=== PATIENT | male | born 1960 | race Caucasian/White ===

== ENCOUNTER 2024-12-09 09:27 | Emergency (ER) | payer MEDICARE, MEDICAID, SELFPAY ==
--- NOTE | 2024-12-09 09:31 | ED_ITS ---
HPI - General Adult General Chief complaint: Ear Problems Stated complaint: Swimmers ear? Time Seen by Provider: 12/09/24 09:31 Source: patient Mode of arrival: ambulatory Limitations: no limitations History of Present Illness ED Provider: Evelia Nielsen PA-C HPI narrative: Patient is a 64 year old assigned male at with a history of DM and recurrent ear infections presenting to the emergency department today with left sided ear swelling and pain. Patient states that over the last month he has had left sided ear swelling, redness, and pain. Patient states that it started on his right side but is now only his left. Patient states that throughout his life he has had issues with ear infections but hasn't had any issues in years. Patient denies any other complaints at this time. Related Data Previous Rx's ?Medication ?Instructions ?Recorded cephalexin 500 mg capsule 500 mg PO Q6H 7 days #28 cap s 12/09/24 doxycycline hyclate 100 mg tablet 100 mg PO BID 7 days #14 tabs 12/09/24 ofloxacin 0.3 % ear drops 10 drp otic (ears) DAILY 7 d ays 12/09/24 #10 mL Allergies Allergy/AdvReac Type Severity Reaction Status Date / Time Penicillins Allergy Unknown UNKNOWN Verified 12/09/24 09:39 Review of Systems 2 Constitutional: Constitutional: Reports as per HPI Eyes: Eyes: Reports as per HPI ENT: Reports as per HPI Cardiovascular: Cardiovascular: Reports as per HPI Respiratory: Respiratory: Reports as per HPI Gastrointestinal: Gastrointestinal: Reports as per HPI Genitourinary: Genitourinary: Reports as per HPI Musculoskeletal: Musculoskeletal: Reports as per HPI Integumentary/Breasts: Skin/Breast: Reports as per HPI Neurologic: Reports as per HPI Psychiatric: Psychiatric: Reports as per HPI Endocrine: Endocrine: Reports as per HPI Hematologic/Lymphatic: Hematologic/Lymphatic: Reports as per HPI Allergic/Immunologic: Allergic/Immunologic: Reports as per HPI PMF Past Medical History Attestation statement: The following information was validated with the patient. Source: old records reviewed and nursing notes reviewed Social History Social History Smoked in Last 30 Days: No Use of substances other than those prescribed or required for medical reasons: No Advance Directives: No Advance Directives Information Provided: Yes Do you have a plan to hurt others: No Plan Physical Exam ED Vital Signs: Vital Signs - 24 hr 12/09/24 09:38 12/09/24 09:45 12/09/24 10:06 Temperature 98.3 F 98.3 F 98.3 F Pulse Rate 89 89 89 Respiratory Rate 18 18 18 Blood Pressure 161/100 H 161/100 H 161/100 H Pulse Oximetry 98 98 98 Oxygen Delivery Method Room Air Room Air Room Air BMI result Body Mass Index 39.4 Const General: cooperative, no acute distress, alert and awake Nutritional Appearance: well nourished Orientation/consciousness: patient oriented x3 HENMT Other: Head: Yes normal to inspection and Yes atraumatic Ears: hearing grossly normal bilaterally and Abnormal EAC present otic discharge purulent bilateral General nose exam: Normal external nose present, no nasal discharge noted and no epistaxis Face and sinus: No abrasion and No laceration Mouth: Normal oral and palatal mucosa present, no drooling and no muffled voice Eyes General: appearance normal, both eyes and all related structures Periorbital: periorbital findings normal Eyelids: Yes eyelids normal Conjunctivae: conjunctivae normal Pupils: Equal, round and reactive pupils present EOM: EOMs intact bilaterally Neck Neck: Yes normal visual inspection and Yes full ROM Resp Effort & Inspection: normal respiratory effort and able to speak in complete sentences Neuro General: patient oriented x3, moves all extremities and CN's II-XI intact bilaterally Cranial nerves: Yes Equal, round and reactive pupils present Cognition (Neuro): normal cognition Extrem General: Yes normal to inspection, Yes full ROM and Yes capillary refill normal Psych Appearance: grossly normal Mental Status: mental status grossly normal Affect: normal affect Attitude: cooperative Thought process: Normal thought process present Thought content: Normal thought content present Insight: Good insight present (Psych) Medical Decision Making Medical Decision Making MDM Narrative: Patient is a 64 year old assigned male at with a history of DM and recurrent ear infections presenting to the emergency department today with left sided ear swelling and pain. Patient's physical exam was as noted in the physical exam portion of this note. Patient's left external ear has evidence of erythema / warmth / swelling concerning for cellulitis. Both of the patient's auditory canals had evidence of otitis externa with some pus like discharge mixed with ear wax. Patient's TMs normal bilaterally. Patient's clinical presentation is most consistent with left sided ear cellulitis and bilateral otitis externa for which I will treat with doxy + keflex + ofloxacin. I explained my physical exam findings to the patient. I answered all questions asked by the patient. I stressed the importance of the patient taking his medication as directed (either prescribed or as the over the counter packaging recommends). I stressed the importance of the patient following up with his primary care provider and ENT. I stressed the importance of the patient returning to the emergency department immediately if his symptoms were to worsen or if he were to develop any dizziness, shortness of breath, difficulty breathing, chest pain, blurry vision, loss of vision, nausea, vomiting, abdominal pain, fever, chills, back pain, or any other complaints. Patient verbalized agreement and understanding with this treatment plan and discharge. Differential Diagnosis Differential Diagnoses: The differential diagnosis associated with the presentation includes Ear pain Otitis externa Otitis media Cellulitis Admission/Observation Consideration of admission/observation: Escalation of care including admission/observation considered Patient would have been admitted to the hospital had his work up had any findings where hospital admission was appropriate and his clinical presentation warranted hospital admission. Prescription Management I considered prescription management with: Antibiotic (patient prescribed antibiotics as noted in the MDM Rationale portion of this note. ) Chronic Conditions Patient?s care impacted by: Diabetes Discharge Plan Discharge Clinical Impression: Otitis externa, Cellulitis Patient Disposition: Home, Self-Care Instructions: Cellulitis (ED), Swimmer's Ear (ED) Additional Instructions: Please keep your appointment with your PCP for next week. Take your antibiotics as prescribed and use the antibiotic drops as prescribed. Follow up with an ENT specialist. IF you are prescribed home medications and/or you are taking over the counter medications at home - it is very important you continue to do so as prescribed / directed unless told otherwise. Follow up with your primary care provider. Return to the emergency department immediately if your symptoms worsen or if you develop any numbness, tingling, dizziness, shortness of breath, difficulty breathing, chest pain, blurry vision, loss of vision, nausea, vomiting, abdominal pain, fever, chills, back pain, or any other complaints. Please see the information below about our Patient Portal. If you are not yet enrolled in the [facility] Patient Portal, you will receive an enrollment email invitation following your visit to any [facility] [place] setting. You may also self-enroll in the Patient Portal by visiting our website: [email or web address] The following information is required to access the Patient Portal: - Your [facility] Medical Record Number - Your personal home email address (must match what is in your electronic medical record, Registration staff can assist with this) - Name - Date of Capabilities of the Patient Portal: - Message some providers - View upcoming appointments - Access your health summary, medical history, and visit history - View current conditions and allergies - View procedure and lab results - View your medications, including guidelines, side effects, and precautions - Complete pre-appointment questionnaires requested by your provider - Ready summary reports of your office visits and procedures To access the Patient Portal Mobile Steve, follow these directions: - Search [employer] in the Steve Store or Copyright Agent Store - Download the Steve - Search for [facility] - Enter your login/password Prescriptions: New ofloxacin 0.3 % drops 10 drp otic (ears) DAILY 7 Days Qty: 10 0RF cephalexin 500 mg capsule 500 mg PO Q6H 7 Days Qty: 28 0RF doxycycline hyclate 100 mg tablet 100 mg PO BID 7 Days Qty: 14 0RF Referrals: [facility] [Provider Group, Ear, Nose, Throat] Referral Note: Call to establish and follow up with an ENT specialist. Radha Holley NP [Primary Care Provider, Internal Medicine] Interventions: ED Discharge Assessment Last Done: 12/09/24 10:06 Discharge Date/Time: 12/09/24 10:06 Print Language: Irish
[2024-12-09 09:38] VITALS: BP 161/100; PULSE 89; RESP 18; TEMP 36.8; O2SAT 98; BMI 39.4
--- NOTE | 2024-12-09 09:43 | PC.NURSE ---
64 M presents to ED with L ear pain, redness, swelling x 1 month, got worse last night. Hx swimmers ear, sts unknown to what caused this. Also c/o some intermittent hearing loss in left ear. RR even and unlabored, denies CP or SOB. RR even and unlabored, denies CP or SOB. Pt does have hypertension, took medications today. Pt sts they have white coat syndrome. A+OX4, a little anxious, cooperative. Pt takes the following meds daily: baby aspirin daily, Type 2 DM diet controlled, vitamin D3 capsule, Losartan 75mg daily, Atorvastatin 20mg daily. Pt ambulates without difficulty.
[2024-12-09 09:45] VITALS: BP 161/100; PULSE 89; RESP 18; TEMP 36.8; O2SAT 98
[2024-12-09 10:06] VITALS: BP 161/100; PULSE 89; RESP 18; TEMP 36.8; O2SAT 98
--- OUTSIDE RECORDS SUMMARY | 2024-12-09 12:17 | XMS_ITS | Patient Health Record ---
Author Organization [facility] Address [address] [place] [id number] Care Team Providers Care Surgical Nurse Practitioner Name Role Phone Demetrio Crews Unavailable [phone] Reason For Referral No Information Plan Of Treatment No Information
== END 2024-12-09 10:06 | disposition home or self-care (01) ==
LOC: HO.ED 10:03
PROVIDERS: Emergency Provider Emergency Medicine; PCP Nurse Practitioner Family
DX: H60.93 Unspecified otitis externa, bilateral (principal); H60.12 Cellulitis of left external ear; H93.8X2 Other specified disorders of left ear; H92.03 Otalgia, bilateral
CPT/HCPCS: 99283; 99284